=== PATIENT | female | born 1980 | race Two or more races ===

== ENCOUNTER → 2022-05-10 08:40 | Outpatient (BNVA) | payer OTHER, SELFPAY | PROVIDERS: PCP Nurse Practitioner Acute Care; Visit Provider Psychiatry & Neurology Neurology | DX: Z13.89 Encounter for screening for other disorder (principal) ==

== ENCOUNTER → 2022-06-21 15:59 | Outpatient (REF) | payer OTHER, SELFPAY | LOC: HO.SL 15:59 | PROVIDERS: PCP Internal Medicine; Visit Provider Psychiatry & Neurology Neurology | DX: G47.10 Hypersomnia, unspecified (principal); R06.83 Snoring | CPT/HCPCS: 95806 ==

== ENCOUNTER 2022-07-26 11:56 | Outpatient (REF) | payer OTHER, SELFPAY ==
--- NOTE | 2022-07-26 08:15 | EMG_ITS ---
Bilateral median and ulnar motor and sensory studies were performed. Bilateral radial sensory studies were performed and paraspinal muscles were tested. IMPRESSION: 1. Mild bilateral median neuropathy across carpal tunnel. 2. Mild bilateral ulnar neuropathy across cubital tunnel. 3. Bilateral Merlin-Amie anastomosis, normal variant. 4. This pattern of findings in this age group should be clinically correlated as if there is no significant reason for entrapment neuropathy, this could suggest early diffuse metabolic induced peripheral neuropathy. MD BETI Springer/CHRISSY / [id number]
== END 2022-07-26 11:57 | disposition home or self-care (01) ==
LOC: HO.NEURO 11:56
PROVIDERS: PCP Internal Medicine; Visit Provider Psychiatry & Neurology Neurology
DX: R20.0 Anesthesia of skin (principal); R20.2 Paresthesia of skin
CPT/HCPCS: 95886; 95911